=== PATIENT | female | born 1965 | race Caucasian/White ===

== ENCOUNTER 2016-08-10 15:53 | Emergency (ER) | payer OTHER ==
[2016-08-10 16:41] VITALS: BP 114/72
--- NOTE | 2016-08-10 17:34 | UC ---
Back Pain HPI - History of Current Complaint Chief Complaint: UCBackPain Stated Complaint: SEVERE BACK PAIN Time Seen by Provider: 08/10/16 17:27 Hx Obtained From: Patient Hx Last Menstrual Period: 08/16/14 ?: No Onset/Duration: Gradual Onset - over the last several years., Worse Since - the last 5 days. Pain in the left lower back going down the leg. Timing: Constant Severity Initially: Mild Severity Currently: Severe Back Pain: Is Discrete @ - around the left SI down the back of the leg. Character: Sharp, Aching, Throbbing Aggravating: Lifting, Walking Alleviating: Position Associated Signs And Symptoms: Positive: Numbness - in the left toes, Tingling - in the left toes, Pain with Weight Bearing - Risk Factors AAA Risk Factors: Smoking TAD Risk Factors: Smoking - Allergies/Home Medications Allergies/Adverse Reactions: Allergies Allergy/AdvReac Type Severity Reaction Status Date / Time Amoxicillin [From Augmentin] Allergy Rash And Verified 08/10/16 16:41 Itching Clavulanic Acid Allergy Rash And Verified 08/10/16 16:41 [From Augmentin] Itching Home Medications: Home Medications Acetaminophen [Acetaminophen Extra Stren] 1,000 mg PO Q6H PRN 08/10/16 [History Confirmed 08/10/16] Gabapentin CAP(*) [Neurontin 100 mg CAP(*)] 100 mg PO DAILY 08/10/16 [History Confirmed 08/10/16] Propranolol TAB* [Inderal TAB*] 10 mg PO TID 08/10/16 [History Confirmed ] PMH/Surg Hx/FS Hx/Imm Hx Endocrine History Of: Denies: Diabetes Cardiovascular History Of: Denies: Cardiac Disorders, Hypertension - Surgical History Surgical History: Yes Surgery Procedure, Year, and Place: Tubal Ligation; Appendectomy; Laperoscopy for Endometriosis. spinal stenosis surgery 2012. FUSION CERVICAL SPINE- SEPTEMBER 2013. CHOLECYSTECTOMY - Family History Known Family History: Positive: None, Hypertension - MOTHER - Social History Alcohol Use: None Substance Use Type: None Smoking Status (MU): Heavy Every Day Tobacco Smoker Type: eCigarettes Amount Used/How Often: 1ppd Length of Time of Smoking/Using Tobacco: 40 YRS Have You Smoked in the Last Year: Yes Household Exposure Type: Cigarettes Review of Systems Musculoskeletal: Arthralgia, Myalgia All Other Systems Reviewed And Are Negative: Yes Physical Exam Triage Information Reviewed: Yes Appearance: Well-Appearing, Well-Nourished, Pain Distress - moderate, worse with ambulation Vital Signs: Initial Vital Signs Temp 98.5 F 08/10/16 16:33 Pulse 94 08/10/16 16:33 Resp 12 08/10/16 16:33 BP 114/72 08/10/16 16:33 Pulse Ox 96 08/10/16 16:33 Vital Signs Reviewed: Yes Eyes: Positive: Conjunctiva Clear Neck: Positive: Supple Respiratory: Positive: Lungs clear Cardiovascular: Positive: No Murmur Musculoskeletal: Positive: ROM Limited @ - Lumbar flexion and extension limited. , Other: - Tenderness in the Left SI. Neurological: Positive: Other: - DTR 2+ at patellar and achilles bilaterally. Pinprick intact Procedures - Procedure Summary Procedure Summary: Injection Left SI: Consent. Time out. Betadine prep. 8 cc total injected into the left SI. 1cc kenalog 40, 2cc 1% xylocaine and 5cc 0.25% marcaine. Excellent pain relief. Re-Evaluation - Re-Evaluation First Eval Re-Evaluation Time: 18:38 - Much better after the injection. Change: Improved Back Pain Course/Dx - Differential Dx/Diagnosis Differential Diagnosis/HQI/PQRI: Herniated Disc, Strain, Sprain Provider Diagnoses: Acute sacroiliitis. S/P sacroiliac injection Discharge - Discharge Plan Condition: Stable Disposition: HOME Patient Education Materials: Sacroiliitis (ED), Triamcinolone (By injection) Additional Instructions: You had a cortisone injection. Watch out for infection. Redness/ warmth/ swelling and worsening pain after 24 hours. Please make an appointment tomorrow to see a chiropractor.
[2016-08-10] MEDS ORDERED: Bupivacaine 0.5%* 50 ML VIAL INJ ONE (18:14)
[2016-08-10] MEDS ORDERED: Triamcinolone Acetonide* 40 MG/ML 1 ML VIAL INTRAARTIC ONE (18:14)
[2016-08-10] MEDS ORDERED: Lidocaine 1% INJ* 10 MG/ML 30 ML SDV INJ ONE (18:16)
[2016-08-10] MEDS ORDERED: Bupivacaine 0.25% SDV* 30 ML INJ ONE (18:20)
[2016-08-10] MEDS ORDERED: Lidocaine 1% MPF* 2 ML VIAL INJ ONE (18:21)
== END 2016-08-10 19:00 | disposition home or self-care (01) ==
LOC: UCCORT 15:53
DX: M46.1 Sacroiliitis, not elsewhere classified (principal); Z90.49 Acquired absence of other specified parts of digestive tract; Z88.1 Allergy status to other antibiotic agents; F17.210 Nicotine dependence, cigarettes, uncomplicated
CPT/HCPCS: 20610; 99211; G0463; J2001; J3301

== ENCOUNTER 2017-09-16 17:43 | Emergency (ER) | payer OTHER ==
[2017-09-16 18:00] VITALS: BP 132/78
--- NOTE | 2017-09-16 18:35 | UC ---
UC General HPI - HPI Summary HPI Summary: 52 yo female c/o approx 2 weeks progressive R back and R abd pain. + diarrhea last several weeks (approx 6x / day), no melena / brbpr. Some dysuria, no cecille blood. No recent fever. No cough / sob / palpitations. No vomit. Hx remote appdx, gb sx's. No known renal kidney issues. No rash. Pain has remained in approx similar area since beginning. Denies bladder discomfort, denies vaginal d/c or abnormal bleed. Today pain has been unrelenting, prompting seeking for medical care. - History of Current Complaint Chief Complaint: UCGU Stated Complaint: BACK PAIN Time Seen by Provider: 09/16/17 18:29 Hx Obtained From: Patient Hx Last Menstrual Period: 08/16/14 Pain Intensity: 8 - Allergy/Home Medications Allergies/Adverse Reactions: Allergies Allergy/AdvReac Type Severity Reaction Status Date / Time amoxicillin [From Augmentin] Allergy Rash And Verified 09/16/17 17:55 Itching clavulanic acid Allergy Rash And Verified 09/16/17 17:55 [From Augmentin] Itching Home Medications: Home Medications Acetaminophen [Acetaminophen Extra Strength] 1,000 mg PO Q8H PRN 09/16/17 [ History Confirmed 09/16/17] Meloxicam [Mobic] 15 mg PO DAILY 09/16/17 [History Confirmed 09/16/17] PMH/Surg Hx/FS Hx/Imm Hx Previously Healthy: Yes - has been told "borderline dm" - Surgical History Surgical History: Yes Surgery Procedure, Year, and Place: Tubal Ligation; Appendectomy; Laperoscopy for Endometriosis. spinal stenosis surgery 2012. FUSION CERVICAL SPINE- SEPTEMBER 2013. CHOLECYSTECTOMY. 06/2017 neck surgery - Family History Known Family History: Positive: None, Hypertension - MOTHER - Social History Alcohol Use: None Substance Use Type: None Smoking Status (MU): Heavy Every Day Tobacco Smoker Type: eCigarettes Amount Used/How Often: 1ppd Length of Time of Smoking/Using Tobacco: 40 YRS Have You Smoked in the Last Year: Yes Household Exposure Type: Cigarettes Review of Systems Constitutional: Fatigue Skin: Negative Eyes: Negative ENT: Negative Respiratory: Negative Cardiovascular: Negative Gastrointestinal: Other - see hpi Genitourinary: Other - see hpi Motor: Negative Neurovascular: Negative Musculoskeletal: Negative Neurological: Negative Psychological: Negative Is Patient Immunocompromised?: No All Other Systems Reviewed And Are Negative: Yes Physical Exam Triage Information Reviewed: Yes Appearance: Well-Nourished - sitting up in chair, moves slowly, able to lie down and sit up, but uncomfortable. Vital Signs: Initial Vital Signs Temp 98.8 F 09/16/17 17:52 Pulse 73 09/16/17 17:52 Resp 17 09/16/17 17:52 BP 132/78 09/16/17 17:52 Pulse Ox 97 09/16/17 17:52 Vital Signs Reviewed: Yes Eye Exam: Normal ENT Exam: Normal Neck exam: Normal Neck: Positive: Supple, Nontender Respiratory Exam: Normal Respiratory: Positive: Chest non-tender, Lungs clear, Normal breath sounds, No respiratory distress, No accessory muscle use Cardiovascular Exam: Normal Cardiovascular: Positive: RRR, No Murmur, Pulses Normal, Brisk Capillary Refill Abdominal Exam: Other - Tender R CVA region. Tender RUQ. + surgical incision scars d/t prior surgeries. Tender mild RLQ, but not tender suprapubic (bladder area), nor lateral pelvis regions. No rebound, mild guarding in tender areas. Nontender LLQ, minimally tender LUQ. Abdomen Description: Positive: Soft Bowel Sounds: Positive: Present Musculoskeletal Exam: Normal - moves x 4 exts, gait slow steady Neurological Exam: Normal - grossly nonfocal Psychological Exam: Normal - conversing easily and appropriately Skin Exam: Normal - no visible or reported rash or skin discoloration. Nondiaphoretic. Course/Dx - Course Course Of Treatment: Reviewed urine dip. Urine dipstick here today - SG 1.025, pH 6.5, Trace protein, negative glucose, trace ketones, negative blood, negative nitrite, negative bilirubin, Urobilinogen 1.0, Leuk est trace. D/w Ms. Gilmore-Carlos coa / tx plan. Recommend go to the ED for further workup. She carefully considered this, and agrees to go. She will drive, wishes to go to [facility] ED. I spoke with Dr. Mclaughlin ED, approx 18:50. Questions as posed answered to the best of my ability. - Differential Dx - Multi-Symptom Provider Diagnoses: Acute abd and R back pain Discharge - Sign-Out/Discharge Documenting (check all that apply): Discharge/Admit/Transfer - Discharge Plan Condition: Stable Disposition: HOME Patient Education Materials: Abdominal Pain (ED), Flank Pain (ED) Referrals: Maxine Hart MD [Primary Care Provider] - Additional Instructions: Urine dipstick here today - SG 1.025, pH 6.5, Trace protein, negative glucose, trace ketones, negative blood, negative nitrite, negative bilirubin, Urobilinogen 1.0, Leuk est trace. Please go to the Emergency Department. Call 911 if any problems on the way. - Billing Disposition and Condition Condition: STABLE Disposition: Home
== END 2017-09-16 19:02 | disposition home or self-care (01) ==
LOC: UCCORT 17:43
DX: M54.89 Other dorsalgia (principal); R10.9 Unspecified abdominal pain; R30.0 Dysuria; Z88.0 Allergy status to penicillin; Z98.890 Other specified postprocedural states; Z88.1 Allergy status to other antibiotic agents; F17.210 Nicotine dependence, cigarettes, uncomplicated
CPT/HCPCS: 81003; 87086; 99212; G0463

== ENCOUNTER 2018-04-04 12:11 | Emergency (ER) | payer OTHER ==
[2018-04-04 13:44] VITALS: BP 141/91
--- NOTE | 2018-04-04 14:06 | UC ---
Throat Pain/Nasal Wil HPI - HPI Summary HPI Summary: Pt presents with c/o nasal congestion, sinus pressure and pain, sneezing, cough generalized malaise X 3 months. - History of Current Complaint Chief Complaint: UCRespiratory Stated Complaint: CONGESTION, EAR PAIN Time Seen by Provider: 04/04/18 13:49 Hx Obtained From: Patient Hx Last Menstrual Period: n/a ?: No Onset/Duration: Gradual Onset, Lasting Weeks Severity: Moderate Pain Intensity: 6 Cough: Nonproductive Associated Signs & Symptoms: Positive: Sinus Discomfort, Other - sneezing Related History: Smoking - Epiglottits Risk Factors Epiglottis Risk Factors: Negative - Allergies/Home Medications Allergies/Adverse Reactions: Allergies Allergy/AdvReac Type Severity Reaction Status Date / Time amoxicillin [From Augmentin] Allergy Rash And Verified 04/04/18 13:45 Itching clavulanic acid Allergy Rash And Verified 04/04/18 13:45 [From Augmentin] Itching PMH/Surg Hx/FS Hx/Imm Hx Previously Healthy: Yes - Surgical History Surgical History: Yes Surgery Procedure, Year, and Place: Tubal Ligation; Appendectomy; Laproscopy for Endometriosis. spinal stenosis surgery 2012. FUSION CERVICAL SPINE- SEPTEMBER 2013. CHOLECYSTECTOMY. 06/2017 neck surgery - Family History Known Family History: Positive: Hypertension - MOTHER - Social History Occupation: Employed Full-time Lives: With Family Alcohol Use: None Substance Use Type: None Smoking Status (MU): Heavy Every Day Tobacco Smoker Type: eCigarettes Amount Used/How Often: 1ppd Length of Time of Smoking/Using Tobacco: 40 YRS Have You Smoked in the Last Year: Yes Household Exposure Type: Cigarettes Review of Systems All Other Systems Reviewed And Are Negative: Yes Constitutional: Positive: Chills, Fatigue Skin: Positive: Negative Eyes: Positive: Negative ENT: Positive: Nasal Discharge, Sinus Congestion, Sinus Pain/Tenderness Respiratory: Positive: Cough Cardiovascular: Positive: Negative Gastrointestinal: Positive: Negative Genitourinary: Positive: Negative Motor: Positive: Negative Neurovascular: Positive: Negative Musculoskeletal: Positive: Myalgia Neurological: Positive: Headache Psychological: Positive: Negative Is Patient Immunocompromised?: No Physical Exam Triage Information Reviewed: Yes Appearance: Ill-Appearing Vital Signs: Initial Vital Signs Temp 98 F 04/04/18 13:38 Pulse 73 04/04/18 13:38 Resp 18 04/04/18 13:38 BP 141/91 04/04/18 13:38 Pulse Ox 100 04/04/18 13:38 Vital Signs Reviewed: Yes Eye Exam: Normal ENT: Positive: Nasal congestion, Sinus tenderness Dental Exam: Normal Neck exam: Normal Respiratory: Positive: Decreased breath sounds, Other: - respiratory congestion Cardiovascular Exam: Normal Musculoskeletal Exam: Normal Neurological Exam: Normal Psychological Exam: Normal Skin Exam: Normal Throat Pain/Nasal Course/Dx - Differential Dx/Diagnosis Differential Diagnosis/HQI/PQRI: Pharyngitis, Sinusitis, Tonsillitis, URI Provider Diagnosis: Sinusitis, Allergic rhinitis Discharge - Sign-Out/Discharge Documenting (check all that apply): Patient Departure All imaging exams completed and their final reports reviewed: No Studies - Discharge Plan Condition: Stable Disposition: HOME Prescriptions: Azithromycin TAB* [Zithromax TAB (Z-MELODY) 250 mg #6 tabs] 2 tab PO .TODAY, THEN 1 DAILY #1 melody Cetirizine* [ZyrTEC 10 MG TAB*] 10 mg PO DAILY #10 tab Guaifenesin/Pseudoephedrne HCl [Mucinex D ER 600-60 mg Tablet] 1 each PO Q12H # 14 tab.er.12h Patient Education Materials: Sinusitis (ED) Referrals: Maxine Hart MD [Primary Care Provider] - If Needed - Billing Disposition and Condition Condition: STABLE Disposition: Home
== END 2018-04-04 14:19 | disposition home or self-care (01) ==
LOC: UCCORT 12:11
DX: J32.9 Chronic sinusitis, unspecified (principal); J30.9 Allergic rhinitis, unspecified; Z88.0 Allergy status to penicillin; Z88.8 Allergy status to other drugs, medicaments and biological substances; F17.210 Nicotine dependence, cigarettes, uncomplicated
CPT/HCPCS: 99212; G0463

== ENCOUNTER 2018-05-29 17:16 | Emergency (ER) | payer OTHER, MEDICARE ==
[2018-05-29 17:40] VITALS: BP 146/93
--- NOTE | 2018-05-29 18:08 | UC ---
Ear Complaint HPI - HPI Summary HPI Summary: treated with zpack end of March 2018, with dx of sinusitis. Bilateral ear pain at that time was slow to resolve, but over the past several days she has had increasing ear pain and clear drainage from the right ear. No associated hearing loss, sore throat or sinus congestion. - History of Current Complaint Chief Complaint: UCEar Stated Complaint: B/L EAR COMPLAINT Time Seen by Provider: 05/29/18 18:03 Hx Obtained From: Patient Hx Last Menstrual Period: n/a ?: No Onset/Duration: Gradual Onset, Lasting Days - 3 Severity Initially: Moderate Severity Currently: Moderate Pain Intensity: 6 Aggravating Factors: Nothing Alleviating Factors: Nothing Associated Signs/Symptoms: Positive: Discharge Related History: Smoking - Allergies/Home Medications Allergies/Adverse Reactions: Allergies Allergy/AdvReac Type Severity Reaction Status Date / Time amoxicillin [From Augmentin] Allergy Rash And Verified 05/29/18 17:40 Itching clavulanic acid Allergy Rash And Verified 05/29/18 17:40 [From Augmentin] Itching PMH/Surg Hx/FS Hx/Imm Hx - Additional Past Medical History Additional PMH: past urticaria without respiratory compromise with amoxicillin; uncertain if she has ever had a cephalosporin Previously Healthy: Yes - chronic smoking GI/ History: Gastroesophageal Reflux Psychological History: Depression - Surgical History Surgical History: Yes Surgery Procedure, Year, and Place: Tubal Ligation; Appendectomy; Laproscopy for Endometriosis. spinal stenosis surgery 2012. FUSION CERVICAL SPINE- SEPTEMBER 2013. CHOLECYSTECTOMY. 06/2017 neck surgery - Family History Known Family History: Positive: Cardiac Disease - mother had CHF, Hypertension - MOTHER - Social History Lives: With Family Alcohol Use: None Substance Use Type: None Smoking Status (MU): Heavy Every Day Tobacco Smoker Type: eCigarettes Amount Used/How Often: 1ppd Length of Time of Smoking/Using Tobacco: 40 YRS Have You Smoked in the Last Year: Yes Household Exposure Type: Cigarettes Review of Systems All Other Systems Reviewed And Are Negative: Yes Constitutional: Positive: Negative Skin: Positive: Negative Eyes: Positive: Negative ENT: Positive: Ear Ache Respiratory: Positive: Negative Cardiovascular: Positive: Other - no hx of hypertension Gastrointestinal: Positive: Negative Genitourinary: Positive: Negative Motor: Positive: Negative Neurovascular: Positive: Negative Musculoskeletal: Positive: Negative Neurological: Positive: Negative Psychological: Positive: Negative Is Patient Immunocompromised?: No Physical Exam Triage Information Reviewed: Yes Appearance: Ill-Appearing - looks mildly unwell and uncomfortable. Vital Signs: Initial Vital Signs Temp 98.4 F 05/29/18 17:37 Pulse 76 05/29/18 17:37 Resp 16 05/29/18 17:37 BP 146/93 05/29/18 17:37 Pulse Ox 99 05/29/18 17:37 Eyes: Positive: Conjunctiva Clear ENT: Positive: Pharynx normal, TM dull - on right, TM red - on right, tympanic membrane intact., Other - right ear canal with edema and erythema Neck: Positive: Supple, Nontender, Enlarged Nodes @ - posterior right cervical area, Other: - scar anterior neck Respiratory: Positive: Lungs clear, Normal breath sounds Cardiovascular: Positive: RRR, No Murmur Psychological Exam: Normal Skin Exam: Normal Ear Complaint Course/Dx - Course Course Of Treatment: cephalexin (aware of small risk of allergy) and otic drops. - Differential Dx/Diagnosis Differential Diagnosis/HQI/PQRI: Otitis Externa, Otitis Media, Other - serous otitis Provider Diagnosis: Otitis externa Discharge - Sign-Out/Discharge Documenting (check all that apply): Patient Departure All imaging exams completed and their final reports reviewed: No Studies - Discharge Plan Condition: Stable Disposition: HOME Prescriptions: Cephalexin CAP* [Keflex 500 CAP*] 500 mg PO TID #15 cap Neomyc/Polym/HC 1% OTIC SUSP* [Cortisporin Otic Susp 1%*] 4 drop RIGHT EAR QID # 1 btl Patient Education Materials: Otitis Externa (ED) Referrals: Maxine Hart MD [Primary Care Provider] - Additional Instructions: Begin use of cephalexin for treatment; if you become itchy or develop hives, please stop use and call for a change of antibiotic. Use cortisporin otic drops every 3 hours in the right ear, and you can use some in the left ear as well, although the left side is not obviously infected. Follow up with Dr. Hart in 5 to 6 days if you are having persistent pain or drainage. - Billing Disposition and Condition Condition: STABLE Disposition: Home
== END 2018-05-29 18:32 | disposition home or self-care (01) ==
LOC: UCCORT 17:16
DX: H60.91 Unspecified otitis externa, right ear (principal); F17.290 Nicotine dependence, other tobacco product, uncomplicated; Z88.1 Allergy status to other antibiotic agents
CPT/HCPCS: 99212; G0463

== ENCOUNTER 2019-01-17 17:44 | Emergency (ER) | payer SELFPAY ==
--- NOTE | 2019-01-17 18:31 | UC ---
Skin Complaint HPI - HPI Summary HPI Summary: 53 yo female presents with rash. She tells me that since August of 2018 she has had a waxing and waning rash to her arms and legs that is very itchy. She has seen her PCP and was given a steroid cream, which did "nothing" per pt. Was then placed on po prednisone, but pt was unable to tolerate this and did not take it beyond 1 day. Since that time her rash has continued and she has been vigorously itching her arms due to this. She mentions that her and her are redoing their house and many del cid have been torn down, but has no symptoms. She has not seen dermatology. Denies fever, chills, SOB, chest pain, n /v. - History of Current Complaint Time Seen by Provider: 01/17/19 18:31 Stated Complaint: RASH ON ARMS AND LEGS Hx Obtained From: Patient Hx Last Menstrual Period: n/a Onset/Duration: Gradual Onset Onset Severity: Severe Current Severity: Severe - Allergy/Home Medications Allergies/Adverse Reactions: Allergies Allergy/AdvReac Type Severity Reaction Status Date / Time amoxicillin [From Augmentin] Allergy Rash And Verified 01/17/19 18:27 Itching clavulanic acid Allergy Rash And Verified 01/17/19 18:27 [From Augmentin] Itching prednisone AdvReac Severe Nausea Verified 01/17/19 18:27 Home Medications: Home Medications Atorvastatin* [Lipitor*] 40 mg PO DAILY 01/17/19 [History Confirmed 01/17/19] FLUoxetine* [PROzac*] 10 mg PO DAILY 01/17/19 [History Confirmed 01/17/19] Gabapentin CAP(*) [Neurontin 100 mg CAP(*)] 200 mg PO TID 01/17/19 [History Confirmed 01/17/19] Omeprazole 40 mg PO DAILY 01/17/19 [History Confirmed 01/17/19] Propranolol TAB* [Inderal TAB*] 60 mg PO DAILY 01/17/19 [History Confirmed 01/17] PMH/Surg Hx/FS Hx/Imm Hx Endocrine History: Dyslipidemia Cardiovascular History: Hypertension Psychological History: Anxiety, Depression - Surgical History Surgical History: Yes Surgery Procedure, Year, and Place: Tubal Ligation; Appendectomy; Laproscopy for Endometriosis. spinal stenosis surgery 2012. FUSION CERVICAL SPINE- SEPTEMBER 2013. CHOLECYSTECTOMY. 06/2017 neck surgery - Family History Known Family History: Positive: Cardiac Disease - mother had CHF, Hypertension - MOTHER - Social History Lives: With Family Alcohol Use: None Substance Use Type: None Smoking Status (MU): Heavy Every Day Tobacco Smoker Type: eCigarettes Amount Used/How Often: 1ppd Length of Time of Smoking/Using Tobacco: 40 YRS Have You Smoked in the Last Year: Yes Household Exposure Type: Cigarettes Review of Systems All Other Systems Reviewed And Are Negative: No Constitutional: Positive: Negative Skin: Positive: Rash Eyes: Positive: Negative ENT: Positive: Negative Respiratory: Positive: Negative Cardiovascular: Positive: Negative Gastrointestinal: Positive: Negative Neurological: Positive: Negative Psychological: Positive: Negative Physical Exam - Summary Physical Exam Summary: GENERAL: NAD. WDWN. No pain distress. SKIN: B/L arms and legs with scattered excoriations and scabs. Scant 1-2mm areas of mild erythema and ?burrows. Hands with similar appearing lesions. No drainage, streaking, abscess, bleeding, or warmth. NECK: Supple. Nontender. No lymphadenopathy. CHEST: No accessory muscle use. Breathing comfortably and in no distress. CV: Pulses intact. Cap refill <2seconds NEURO: Alert. PSYCH: Age appropriate behavior. Triage Information Reviewed: Yes Vital Signs: Vital Signs: Temp Pulse Resp BP Pulse Ox 98.4 F 80 20 155/105 96 01/17/19 18:34 01/17/19 18:34 01/17/19 18:34 01/17/19 18:34 01/17/19 18:34 Vital Signs Reviewed: Yes Course/Dx - Course Course Of Treatment: I am unsure the cause of pt's rash, but she apparently did not respond to topical steroids, thus will treat with permethrin for bed bugs/scabies and if this does not improve her symptoms to use the ketoconazole cream for possible fungal infection. Recommend f/u with dermatology [facility] - Diagnoses Provider Diagnosis: Rash Discharge ED - Sign-Out/Discharge Documenting (check all that apply): Patient Departure All imaging exams completed and their final reports reviewed: No Studies - Discharge Plan Condition: Stable Disposition: HOME Prescriptions: diphenhydrAMINE HCl [Benadryl Allergy] 25 mg PO DAILY #10 tablet Ketoconazole 2 % CREAM (NF) [Nizoral 2% CREAM (NF)] 1 applic TOPICAL BID #1 tube Permethrin [Nix] 59 ml TP ONCE #1 liquid Patient Education Materials: Dermatitis (ED) Referrals: Maxine Hart MD [Primary Care Provider] - Enid Darby MD [Medical Doctor] - As Soon As Possible Additional Instructions: If you develop a fever, shortness of breath, chest pain, new or worsening symptoms - please call your PCP or go to the ED immediately. Your blood pressure was high at todays visit. Please see your primary provider within 4 weeks for recheck and re-evaluation. Please call dermatology at the number below to schedule an appointment for a recheck as soon as possible - Billing Disposition and Condition Condition: STABLE Disposition: Home - Attestation Statements Provider Attestation: Chart reviewed. Pt not seen by me. I was available for consult. BRANDT
[2019-01-17 18:45] VITALS: BP 155/105
== END 2019-01-17 19:00 | disposition home or self-care (01) ==
LOC: UCCORT 17:44
DX: R21 Rash and other nonspecific skin eruption (principal); E78.5 Hyperlipidemia, unspecified; I10 Essential (primary) hypertension; F32.9 Major depressive disorder, single episode, unspecified; F41.9 Anxiety disorder, unspecified; F17.290 Nicotine dependence, other tobacco product, uncomplicated; Z79.899 Other long term (current) drug therapy; Z88.0 Allergy status to penicillin; Z88.8 Allergy status to other drugs, medicaments and biological substances
CPT/HCPCS: 99212; G0463